=== PATIENT | male | born 1970 | race Caucasian/White ===

== ENCOUNTER 2019-01-08 09:24 | Inpatient (IN) ==
[2019-01-08] MEDS ORDERED: *HR* Heparin 10,000 UNIT/10 ML VIAL ONE (09:44)
[2019-01-08] MEDS ORDERED: 0.9 % Sodium Chloride 1,000 ML ONE ×3 (09:44→13:28)
[2019-01-08] MEDS ORDERED: Nitroglycerin 1,000 MCG/10 ML VIAL IV ONE (09:44)
[2019-01-08] MEDS ORDERED: Heparin 1,000 UNITS/500 mL 500 ML ONE (09:44)
[2019-01-08] MEDS ORDERED: ISOVUE-370 100 ML INFUS..BTL ONE ×3 (09:45→11:06)
[2019-01-08] MEDS ORDERED: Tirofiban 12.5 MG/250ML 12.5 MG/250 ML BAG ONE (09:57)
[2019-01-08] MEDS ORDERED: *HR* Midazolam HCl 2 MG/2 ML VIAL ONE (10:17)
[2019-01-08] MEDS ORDERED: *HR* FentaNYL (PF) 100 MCG/2 ML VIAL ONE (10:17)
[2019-01-08] MEDS ORDERED: *HR* Morphine 10 MG/ML VIAL ONE (10:35)
--- NOTE | 2019-01-08 11:43 | Invasive Diagnostic Lab Proc ---
Name: Louis Brunson Date of Study: 01/08/2019 Date: 1970 Ht: 66.0in Medical Record#: [id number] Age: 48 Wt: 220.46lb Gender: Male BSA: 2.08 Order #: [id number] BMI: 35.6 Physicians Procedure Physician: Camryn Elizabeth MD Referring MD: Referring MD: Staff Name Position Time In HilariamiriamIndigo engle RN Monitor 10:13 AM Ever Verma RN Office Employee 10:13 AM Sharmaine Taveras RT (R) Scrub 10:13 AM Wero Malone RN Nurse 10:13 AM Richar Branham RN Office Employee 10:13 AM Anali Rodriguez RN Nurse 10:13 AM Indications Indication STEMI Procedures Performed Procedure L HRT ARTERY/VENTRICLE ANGIO PRQ CARD REVASC [place] 1 VSL Pre-Procedure Checklist Informed consent is complete signed and on chart. H&P is on chart. ID band is on and ID verified with patient. Patient NPO for procedure The procedure was described for the patient and questions were answered. ECG is on chart. Plan of Care Patient will tolerate the procedure without complications. Adequate level of comfort will be maintained. Hemodynamics will remain stable Patient will recover from procedure without complications. Respiratory function will be maintained. Cardiac rhythm will remain stable. Patient temperature will be maintained. Patient and/or family have verbalized understanding of the procedure. Patient Education Chief Complaint/Reason for Test: Cardiac Cath Developmental Category: Adult (18-64 years) Developmentally Appropriate for Age: Yes Learning Barriers: None Education Needs: Procedure Education Method: Verbal Information Taught: Cardiac Cath Educational Evaluation: Able to repeat information Intravenous Access Time IV Size Location DC'd Fluid/Drip Rate Units RN 18g 1 1/4" Patent On Arrival Rt Antecubital 0.9NaCl ml/hr 20g 1 1/4" Patent On Arrival Lt Antecubital Allergies nkda No Known Allergies Vital Signs Time BP (mmHg) HR (bpm) O2 Sat. RR (bpm) LOC 10:14 AM / % 5 = Fully awake and oriented or at pre-proc level 10:14 AM / % 4 = Oriented but drowsy 10:29 AM / % 4 = Oriented but drowsy 10:45 AM / % 4 = Oriented but drowsy 10:19 AM 189 / 130 61 100 % 24 10:23 AM 195 / 110 78 98 % 18 10:28 AM 188 / 126 80 95 % 14 10:32 AM 174 / 133 73 94 % 12 10:38 AM 174 / 125 80 94 % 13 10:42 AM 160 / 108 69 92 % 12 10:48 AM 147 / 113 59 97 % 13 10:52 AM 149 / 96 77 95 % 12 10:57 AM 155 / 105 75 93 % 14 11:02 AM 148 / 100 69 94 % 14 11:07 AM 154 / 106 98 96 % 18 Procedural Medications Time Medication Dose Units Method Given By 10:14 AM Oxygen 2 L/min nasal cannula Ever Verma RN 10:18 AM Versed 1 mg Intravenous Ever Verma RN 10:18 AM Fentanyl 50 mcg Intravenous Ever Verma RN 10:20 AM Lidocaine 2% 10 ml Subcutaneous Camryn Elizabeth MD 10:25 AM Aggrastat Bolus: 50 ml Intravenous Ever Verma RN 10:25 AM Aggrastat 12.5mg/250ml 18 ml/hr Intravenous Ever Verma RN 10:36 AM Morphine 1 mg Intravenous Ever Verma RN 10:38 AM Heparin 2500 units Intravenous Ever Verma RN 10:50 AM Nitroglycerin 100 mcg IntracoronTimothy Dubose MD 10:51 AM Versed 0.5 mg Intravenous Ever Verma RN 10:51 AM Nitroglycerin 200 mcg Intracoronary Timothy Elizabeth MD 10:52 AM Oxygen 6 L/min nasal cannula Ever Verma RN 10:55 AM Nitroglycerin 200 mcg Intracoronary Timothy Elizabeth MD Alphonse Score Preprocedure Postprocedure Activity 2- Moves 4 extremities sustained head lift Activity 2- Moves 4 extremities sustained head lift Circulation 2- SBP +/= 20 points of pre-anesthetic level Circulation 2- SBP +/= 20 points of pre-anesthetic level Consciousness 2- Awake and alert oriented x 3 Consciousness 2- Awake and alert oriented x 3 O2 Saturation 2- Able to maintain O2 satruation of 92% on room air O2 Saturation 2- Able to maintain O2 satruation of 92% on room air Respiratory 2- Able to deep breathe and cough well Respiratory 2- Able to deep breathe and cough well Total Score 10 Total Score 10 Contrast Agent: Isovue Diagnostic Contrast: 254 ml Total Contrast: 254 ml Fluoro Dose: 279 mGy Activated Clotting Time Time Seconds to Clot 10:37 AM 182 10:53 AM 236 11:16 AM 208 Procedure Log Time Note Enter By 09:57 AM CathStat 10:13 AM Case Start 10:13 AM Pt arrived to laborer tree tapping 1 at 10:13 [email or web address] 10:13 AM Indigo Mae RN Position: Monitor Time in: 10:13 tsoummers 10:13 AM Ever Verma RN Position: Office Employee Time in: 10:13 oummers 10:13 AM Sharmaine Taveras RT (R) Position: Scrub Time in: :oummers 10:13 AM Wero Malone RN Position: Nurse Time in: :13 oummers 10:13 AM Richar Branham RN Position: Office Employee Time in: :13 oummers 10:13 AM Anali Rodriguez RN Position: Nurse Time in: :13 tsoummers 10:13 AM Patient charges- Angio tray pack, Navilyst 3mm J, Pulse Oximetry and ACIST tubing and transducer tsoummers 10:13 AM Meet and greet completed mm 10:13 AM Sign in performed according to hospital policy. Informed consent was obtained. tsoummers 10:13 AM Procedure start 10:13 oumm 10:14 AM Time: 10:14 Oxygen on at 2 L/min per nasal cannula by [facility] RN [facility]14 AM Time: 10:14 Patient comfortable and pain free: Yes tsoumm 10:14 AM Time: 10:14LOC: 5 = Fully awake and oriented or at pre-proc level tsoumm 10:15 AM Hair removed from procedure site in procedure lab using clippers. Bilateral groin prepped with Chloraprep by Sharmaine Taveras RT (R), then patient was draped. Skin intact. tsmm 10:15 AM Critical cardiac patient with acute [place] was brought emergently to the cardiac lab aide for immediate coronary angiography and intervention if clinically indicated. [facility] AM Vitals capture started with the following parameters, Patient=Adult, Interval=5 min, Initial Ecpqwclq=749 mmHg, Deflation Rate=3 mmHg, Cuff placed on Right Arm 10:18 AM Time: 10:18 Versed 1 mg Intravenous Given by Ever Verma RN 10:18 AM Time: 10:18 Fentanyl 50 mcg Intravenous Given by Ever Verma RN [facility] 10:19 AM HR=61 bpm, SLEU=972/130 mmhg, FtG0=941.0 %, Resp=24 B/min 10:19 AM Time out was performed according to hospital policy. Conscious sedation and anesthesia was achieved (see medication log with in this report above) 10:19 AM Clinical Presentation: STEMI or equivalent 10:20 AM Recorded ECG: HR=68 Condition=Condition 1 10:20 AM Pressure channel 1 zeroed. 10:21 AM Time: 10: 10 ml Lidocaine 2% to right groin Subcutaneous Given by Camryn Elizabeth MD 10:21 AM Micro-Introducer Kit utilized for sheath placement mm 10:21 AM Access obtained by percutaneous puncture. 6Fr 10cm Terumo [place] sheath placed in right Femoral artery. [id number] mm 10:21 AM 0.035 145cm Navilyst 3mmJ wire [id number] 10:22 AM 5Fr FR 4 catheter inserted over the wire [facility] 10:22 AM wire removed 10:22 AM RCA angiography performed in multiple views. tsmm 10:22 AM Recorded Pressure: Ao, HR=75, Condition=Condition 1 (Aorta) Ao 85/62/74 10:22 AM Coronary Dominance: right mm 10:22 AM Catheter removed 10:23 AM HR=78 bpm, PULD=979/110 mmhg, SpO2=98.0 %, Resp=18 B/min 10:23 AM 6Fr XB LAD 3.5 Cordis guide catheter was used to cannulate the PCI vessel successfully. reused? No tsoummers 10:24 AM LCA angiography performed in multiple views. tsoumm 10:24 AM Recorded Pressure: Ao, HR=80, Condition=Condition 1 (Aorta) Ao 187/128/153 10:24 AM Recorded ECG: HR=82 Condition=Condition 1 10:24 AM .014 [employer] [place] 190cm guide wire across target lesion- successful. reused? No oumm 10:25 AM Time: 10:25 Aggrastat Bolus: 50 ml Intravenous Given by Bayron, Ever RN Chase pump tsoummers 10:25 AM Time: 10:25 Aggrastat 12.5mg/250ml 18 ml/hr Intravenous Given by Ever Verma RN [facility] 10:26 AM Lesion found in Proximal LAD. Pre Stenosis: 100 Pre WAI Flow: 0: No Flow/No perfusion tsoummers 10:28 AM HR=80 bpm, BSKD=686/126 mmhg, SpO2=95.0 %, Resp=14 B/min 10:29 AM Time: 10:14LOC: 4 = Oriented but drowsy tsoummers 10:29 AM Time: 10:14 Patient comfortable and pain free: Yes tsoummers 10:30 AM Inflation device was opened. tsoummers 10:30 AM 2.0 mm x 12 mm Emerge Monorail balloon across target lesion- successful. reused? No tsoummers 10:30 AM Balloon inflated @ 6 gerri for 7 seconds tsoummers 10:30 AM Balloon inflated @ 6 gerri for 9 seconds tsoummers 10:31 AM Balloon inflated @ 7 gerri for 5 seconds tsoummers 10:31 AM Balloon catheter removed intact. tsoummers 10:32 AM Recorded Pressure: Ao, HR=99, Condition=Condition 1 (Aorta) Ao 160/123/141 10:32 AM Recorded ECG: SW=681 Condition=Condition 1 10:32 AM Recorded Pressure: Ao, IM=648, Condition=Condition 1 (Aorta) Ao 166/127/146 10:32 AM HR=73 bpm, LNFP=818/133 mmhg, SpO2=94.0 %, Resp=12 B/min 10:35 AM 3.5mm x 28mm Synergy drug-eluting stent across target lesion- successful Lot #[id number] tsoummers 10:36 AM Stent deployed @ 8 gerri for 8 seconds tsoummers 10:36 AM Time: 10:36 Morphine 1 mg Intravenous Given by Ever Verma RN [facility] 10:37 AM Stent balloon reinflated @ 11 gerri for 6 seconds tsoummers 10:37 AM At 10:37 the ACT was 182 seconds. tsoummers 10:37 AM Stent delivery system removed intact. tsoummers 10:38 AM Time: 10:38 Heparin 2500 units Intravenous Given by Ever Verma RN [facility] 10:38 AM HR=80 bpm, PIIP=248/125 mmhg, SpO2=94.0 %, Resp=13 B/min 10:38 AM Recorded Pressure: Ao, HR=80, Condition=Condition 1 (Aorta) Ao 162/120/139 10:40 AM Recorded ECG: HR=72 Condition=Condition 1 10:41 AM 3.0mm x 32mm Synergy drug-eluting stent across target lesion- successful Lot #[id number] tsoummers 10:42 AM HR=69 bpm, PRUX=702/108 mmhg, SpO2=92.0 %, Resp=12 B/min 10:43 AM Stent removed intact. Not deployed tsoummers 10:43 AM 3.5 mm x 20mm NC Trek Rx balloon across target lesion- successful. reused? No tsoummers 10:44 AM Balloon inflated @ 10 gerri for 12 seconds tsoummers 10:44 AM Balloon inflated @ 19 gerri for 8 seconds tsoummers 10:45 AM Time: 10:29 Patient comfortable and pain free: Yes tsoummers 10:45 AM Time: 10:29LOC: 4 = Oriented but drowsy tsoummers 10:45 AM Balloon catheter removed intact. tsoummers 10:45 AM 3.0mm x 32 mm synergy reinserted tsoummers 10:48 AM Stent deployed @ 9 gerri for 9 seconds tsoummers 10:48 AM Stent balloon reinflated @ 11 gerri for 6 seconds tsoummers 10:48 AM Stent balloon reinflated @ 11 gerri for 6 seconds tsoummers 10:48 AM HR=59 bpm, JECD=218/113 mmhg, SpO2=97.0 %, Resp=13 B/min 10:49 AM Stent balloon reinflated @ 12 gerri for 15 seconds tsoummers 10:49 AM Stent delivery system removed intact. tsoummers 10:50 AM Recorded ECG: HR=75 Condition=Condition 1 10:50 AM Recorded Pressure: Ao, HR=72, Condition=Condition 1 (Aorta) Ao 138/99/117 10:50 AM Time: 10:50 Nitroglycerin 100 mcg Intracoronary Given by Timothy Elizabeth MD 10:51 AM called Jovanny to confirm 180mg brilinta administered SENIOR CLINICAL PROJECT MANAGER [facility] 10:51 AM Time: 10:51 Versed 0.5 mg Intravenous Given by Ever Verma RN 10:51 AM Time: 10:51 Nitroglycerin 200 mcg Intracoronary Given by Timothy Elizabeth MD [facility] 10:52 AM Time: 10:52 Oxygen on at 6 L/min per nasal cannula by Ever Verma RN [facility] 10:52 AM HR=77 bpm, HHVD=575/96 mmhg, SpO2=95.0 %, Resp=12 B/min 10:53 AM At 10:53 the ACT was 236 seconds. [facility] 10:53 AM Recorded Pressure: Ao, HR=74, Condition=Condition 1 (Aorta) Ao 141/107/124 10:55 AM Time: 10:55 Nitroglycerin 200 mcg Intracoronary Given by [facility] 10[facility]56 AM Recorded ECG: HR=78 Condition=Condition 1 10:56 AM Recorded Pressure: Ao, HR=74, Condition=Condition 1 (Aorta) Ao 140/104/120 10:57 AM HR=75 bpm, YWNJ=786/105 mmhg, SpO2=93.0 %, Resp=14 B/min 11:00 AM Time: 10:45LOC: 4 = Oriented but drowsy [facility] 11:00 AM Time: 10:45 Patient comfortable and pain free: Yes [facility] 11:02 AM 1.5 mm x 15 mm Emerge Monorail balloon across target lesion- successful. reused? No [facility] 11:02 AM HR=69 bpm, XPEB=757/100 mmhg, SpO2=94.0 %, Resp=14 B/min 11:03 AM Balloon inflated @ 6 gerri for 12 seconds [facility] 11:03 AM Balloon inflated @ 7 gerri for 30 seconds [facility] 11:04 AM Balloon inflated @ 7 gerri for 7 seconds [facility] 11:04 AM Balloon inflated @ 9 gerri for 12 seconds [facility] 11:05 AM Balloon catheter removed intact. [facility] 11:05 AM Guide wire removed intact. [facility] 11:05 AM Recorded Pressure: Ao, HR=75, Condition=Condition 1 (Aorta) Ao 139/99/117 11:06 AM Guide catheter removed intact. [facility] 11:06 AM Recorded ECG: HR=90 Condition=Condition 1 11:06 AM 5Fr Pigtail catheter inserted over the wire [facility] 11:06 AM Catheter crossed the aortic valve and was selectively placed in the left ventricle. Pressures recorded on pullback for left heart catheterization. [facility] 11:07 AM Recorded Pressure: LV, HR=89, Condition=Condition 1 (Left Ventricle) LV 127/26/28 11:07 AM HR=98 bpm, IJYX=305/106 mmhg, SpO2=96.0 %, Resp=18 B/min 11:08 AM Bolus angiogram of left Ventricle complete: 10 ml/sec for a total of 20 mls [facility] 11:08 AM Catheter removed [facility] 11:08 AM Recorded Pressure: LV, Ao, HR=69, Condition=Condition 1 (Left Ventricle) LV 115/33/36, (Aorta) Ao 142/105/123 11:08 AM Pressure channel 1 zero failed. 11:09 AM Bolus angiogram of right Femoral complete: HAND INJECTION 4 MLS [facility] 11:10 AM Procedure completed at 11:10 01/08/2019 [facility] 11:11 AM Did you address WAI flow and Dominance? Yes [facility] 11:13 AM Sign out completed: Radiation Dose 2618.94 mGy, 278.97 Gy/cm2 Fluoro Time: 16.8 Isovue 370 - 200ml contrast 254 ml given by Camryn Elizabeth MD. Complications: None. The patient was discharged out of the lab aide in stable condition. Sedation minutes 55. Cardiac Rehab Consult needed: Yes. Confirmed administered medications: Yes [facility] 11:13 AM Isovue 370 - 100ml,4 Bottle(s) used. [facility] 11:14 AM Sheath left in place to be pulled on floor/holding area [facility] 11:14 AM Estimated Blood Loss: less than 50cc [facility] 11:14 AM Post ECG NSR [facility] 11:14 AM Post Blood Pressure 137/107 [facility] 11:14 AM Information taught Cardiac Cath and PCI [facility] 11:14 AM Education needs Procedure, Plan of Care, Responsibilities of Patient in Care, and Disease Process [facility] 11:14 AM Learning barriers :Sedated [facility] 11:14 AM Education Methods Verbal [facility] 11:14 AM Education evaluation Able to repeat information [facility] 11:14 AM Site status No bleeding/hematoma - Rt Groin as reported by Sharmaine Taveras RT (R) at 11:14 tsoummers 11:14 AM Opsite applied ts[facility]mmers 11:14 AM Plavix, Effient or Brilinta given Yes SENIOR CLINICAL PROJECT MANAGER tsoummers 11:14 AM Delay to floor No tsoummers 11:15 AM Family placed in consult room. tsoummers 11:16 AM At 11:16 the ACT was 208 seconds. tsoummers 11:19 AM Report given to Dank RODAS Pt taken to ICU Room #9. 11:19 tsoummers 11:19 AM Patient out of room: 11:19 tsoummers 11:25 AM Lesion found in Right PDA. Pre Stenosis: 90 Pre WAI Flow: 3: Complete and Brisk Flow/Perfusion tsoummers 11:25 AM Right Coronary, Right Posterior Descending Arteries with Right Posterolateral and Acute Marginal branches with 90 % stenosis. If graft is supplying this area, 0 % stenosis tsoummers 11:25 AM Lesion found in Mid LAD. Pre Stenosis: 80 Pre WAI Flow: tsoummers 11:25 AM Lesion found in Distal LAD. Pre Stenosis: 99 Pre WAI Flow: 3: Complete and Brisk Flow/Perfusion tsoummers 11:27 AM Lesion found in Proximal Circumflex. Pre Stenosis: 50 Pre WAI Flow: tsoummers 11:27 AM Lesion found in Distal Circumflex. Pre Stenosis: 50 Pre WAI Flow: tsoummers 11:27 AM Circumflex, Obtuse Marginal, Left Posterior Descending, and Left Posterolateral Coronary Arteries with 50 % stenosis. If graft is supplying this area, 0 % stenosis tsoummers 11:27 AM Proximal Left Anterior Descending Coronary Artery with 100% stenosis. If graft is supplying this territory, 0 % stenosis. tsoummers 11:27 AM Mid/Distal Left Anterior Descending Coronary Artery and diagonal branches with 99% stenosis. If graft is supplying this area, 0 % stenosis tsoummers Complications Complication None Hemodynamics Pressures Site Systolic/A Wave Diastolic/V Wave Mean AO 85 62 74 AO 187 128 153 AO 160 123 141 AO 166 127 146 AO 162 120 139 AO 138 99 117 AO 141 107 124 AO 140 104 120 AO 139 99 117 LV 127 26 28 LV 115 33 36 AO 142 105 123 Post Procedure Information Blood Pressure: 137/107 mmHg Rhythm: NSR Post procedural instructions were given Site Checks Time Location Status Staff Sheath In? Note 11:14 AM Rt Groin No bleeding/hematoma Sharmaine Taveras RT (R) Pulses Updated by Indigo Mae RN on 01/08/2019 11:32:47 AM electronically signed on 01/08/2019 11:33:13 AM with status of Final
--- NOTE | 2019-01-08 12:09 | Cardiology History & Physical ---
Date of Encounter: 01/08/19 Time of Encounter: 12:06 Assessment and Plan (1) ST elevation myocardial infarction (STEMI) of anterior wall Current Visit: Yes Status: Acute The assessment and plan as outlined above was discussed with the patient and/or family members who expressed understanding and agreement. All questions were answered. R/B/A d/w patient and he agrees to proceed to the cathlab emergently. Patient was met in cathlab History of Present Illness Chief complaint: Chest Pain HPI: Mr. Brunson is a 48 year old male with severe chest pain presents from [facility] with anterior STEMI. Patient with hx of HTN, crushing chest pain retrosternal unrelenting. Patient was taken to the cathlab emergently hence limited history was taken. R/B/A d/w patient and he agrees to proceed to the cathlab. Patient started on ACS meds at outside hospital. Past Med Surg Social Fam HX - Past Medical History Medical history: GERD, hyperlipidemia, hypertension, liver disease, myocardial infarction Psychiatric history: no psych history - Social History Smoking Status: Former smoker Smokeless Tobacco Status: Yes Alcohol use: occasionally Drug use: none Medications and Allergies HYDROcodone/Acet 5/325 mg [Bejou 5-325 mg] 2 tab PO Q6H PRN #14 tab 11/14/15 [Rx] Lisinopril [Zestril] 40 mg PO DAILY 11/14/15 [History] Metoprolol [Lopressor] 12.5 mg PO BID 11/14/15 [History] Omeprazole [PriLOSEC] 40 mg PO DAILY 11/14/15 [History] Rosuvastatin [Crestor] 40 mg PO HS 11/14/15 [History] Sulfamethoxazole/Trimeth DS [Bactrim DS] 1 each PO BID #14 tablet 11/14/15 [Rx] cephALEXin [Keflex] 500 mg PO TID #21 capsule 11/14/15 [Rx] Sucralfate [Carafate] 1 gm PO TIDAC #25 tablet 03/23/17 [Rx] Allergy/AdvReac Type Severity Reaction Status Date / Time No Known Allergies Allergy Verified 03/22/17 21:16 All Systems Review: The remainder of the systems were reviewed and are negative Physical Examination Vital Signs, Last 4 Hours Temp Pulse Pulse Resp BP Pulse Ox 01/08/19 12:00 80 18 158/111 95 01/08/19 11:40 76 20 147/109 94 01/08/19 11:35 76 77 20 146/106 93 01/08/19 11:30 97.7 F 77 76 20 139/105 95 General: Conversant, No Apparent Distress HEENT: Atraumatic, Normocephaly, Mucus Membranes Moist Neck: No JVD, Normal carotid pulses Cardiac: Reg Rate and Rhythm, Normal S1 and S2, No Murmur Lungs: Normal Breath Sounds, No Wheeze, Rales, Rhonchi Neuro: Alert and responsive, No focal deficits noted Abdomen: Soft, Non-Tender Skin: No rashes noted on visualized skin Musculoskeletal: No Chest Wall Tenderness Extremities: No Clubbing, No Cyanosis, No Edema, Normal Pulses
[2019-01-08] MEDS ORDERED: Tirofiban 12.5 MG/250ML 12.5 MG/250 ML BAG IVC SCH (12:15)
[2019-01-08] MEDS ORDERED: *HR* Atropine Sulfate 1 MG/10 ML SYRINGE ONE (13:28)
[2019-01-08] MEDS: *HR* Ticagrelor 90 MG TABLET PO SCH (20:10)
[2019-01-08] MEDS ORDERED: Ondansetron 4 MG/2 ML VIAL IVP PRN (21:09)
[2019-01-08] MEDS ORDERED: Perflutren Lipid Microsphere 1.3 ML in 0.9 % Sodium Chloride 8.7 ML IVP ONE (21:34)
[2019-01-08] MEDS: Lisinopril 20 MG TABLET PO SCH (21:38)
[2019-01-09 05:28] LABS: Basophils % 0.2 %; Eosinophils % 0.1 %; Immature Granulocytes % 0.2 % (0-4); Lymphocytes # 1.8 K/mcL (0.6-4.6); Lymphocytes % 16.9 %; Mean Corpuscular HGB Conc 34.9 g/dL (31.6-35.5); Mean Corpuscular Hemoglobin 31.3 pg (28.0-33.3); Mean Corpuscular Volume 89.6 fL (83.0-100.0); Mean Platelet Volume 10.1 fL (9.4-12.4); Monocytes % 9.9 %; Neutrophils # 7.6 K/mcL (1.6-8.9); Platelet Count 207 K/mcL (140-400); Red Cell Distribution Width 12.8 % (11.5-14.5); Segmented Neutrophils % 72.7 %
[2019-01-09 05:42] LABS: BUN/Creatinine Ratio 16 (6-26); Blood Urea Nitrogen 13 mg/dL (6-20); Calcium 9.3 mg/dL (8.6-10.3); Carbon Dioxide 25 mEq/L (23-29); Chloride 105 mEq/L (98-107); Glucose 127 mg/dL (70-105); Osmolality,Calculated 286 (280-300); Potassium 4.1 mEq/L (3.5-5.1); Sodium 137 mEq/L (136-145); eGFR For Non-African Americans > 60 (> 60)
[2019-01-09] MEDS ORDERED: Nitroglycerin 0.4 MG PATCH.TD24 TD SCH ×2 (07:30→22:00)
[2019-01-09] MEDS: *HR* Ticagrelor 90 MG TABLET PO SCH ×2 (08:48→21:15)
[2019-01-09] MEDS: Lisinopril 20 MG TABLET PO SCH (08:48)
[2019-01-09] MEDS ORDERED: Aspirin 81 MG TAB.CHEW PO SCH (09:00)
[2019-01-09] MEDS ORDERED: Metoprolol XL (24 HR) Succ 25 MG TAB.ER.24H PO SCH (09:15)
[2019-01-09] MEDS ORDERED: Isosorbide MONOnitrate (24 HR) 30 MG TAB.ER.24H PO SCH (09:15)
--- NOTE | 2019-01-09 09:16 | Cardiology Progress Note ---
Date of Encounter: 01/09/19 Time of Encounter: 09:15 Assessment and Plan (1) ST elevation myocardial infarction (STEMI) of anterior wall Current Visit: Yes Status: Acute Per Cardiology: [facility]: Lesion Findings/Interventions * Left Main Coronary Artery The LMCA is angiographically free of disease. * Left Anterior Descending There is a 50 mm long, 100% stenosis in the Proximal LAD. The lesion has a WAI flow of 0. An intervention was performed on the Proximal LAD with a final stenosis of 0%. There were no lesion complications. The final WAI flow was 3. There is a 80% stenosis in the Mid LAD. There is a 15 mm long, 99% stenosis in the Distal LAD. The lesion has a WAI flow of 3. An intervention was performed on the Distal LAD with a final stenosis of 25%. There were no lesion complications. The final WAI flow was 3. * Circumflex There is a 50% stenosis in the Proximal Circumflex. There is a 50% stenosis in the Distal Circumflex. * Right Coronary Artery There is a 90% stenosis in the Right PDA. The lesion has a WAI flow of 3. Per Dr. Parikh, cath films reviewed and patient received KIRT to Prox 100% LAD and KIRT to 80% mid LAD. S/p PTCA to distal LAD 99% lesion with residual stenosis 25%. Has 90% right PDA lesion. Currently chest pain-free. Echo showed EF 45- 50%. Will switch beta jordon to Toprol-XL 25 mg by mouth daily. On RADHA inhibitor, aspirin, statin, Brilinta-- assistance card provided. Plan to set down to the floor today. Possible discharge tomorrow. Discussion w patient/family: The assessment and plan as outlined above was discussed with the patient and/or family members who expressed understanding and agreement. All questions were answered. Thank you for involving us in the care of your patient. Please call with any questions. Subjective Principal diagnosis: STEMI Interval history: Patient currently chest pain-free. Reports intermittent midsternal chest discomfort throughout the night. Denies any shortness of breath or palpitations. Denies any concerns with right groin site. Objective Vital Signs, Last 4 Hours Temp Pulse Resp BP Pulse Ox 01/09/19 07:20 98.2 F 01/09/19 06:00 55 18 115/62 95 General: Conversant, No Apparent Distress HEENT: Atraumatic, Normocephaly, Mucus Membranes Moist Neck: No JVD, Normal carotid pulses Cardiac: Reg Rate and Rhythm, Normal S1 and S2, No Murmur Lungs: Normal Breath Sounds, No Wheeze, Rales, Rhonchi Neuro: Alert and responsive, No focal deficits noted Abdomen: Soft, Non-Tender Skin: No rashes noted on visualized skin, Other (Right groin site dry and intact, no hematoma, no bleeding, right PT and DP pulses 2+ palpable) Musculoskeletal: No Chest Wall Tenderness Extremities: No Clubbing, No Cyanosis, No Edema, Normal Pulses Results 01/09/19 05:14 01/09/19 05:14 Lab Results Laboratory Tests 01/09/19 01/09/19 05:14 05:14 Hgb 15.0 Hct 43.0 Creatinine 0.79 Est GFR (Non-Af Amer) > 60 ITS Impressions Echocardiogram 01/08/19 12:03 Impressions: LVEF 45-50%. Moderate segmental left ventricular systolic dysfunction. Mild concentric left ventricular hypertrophy. Mild left ventricular diastolic dysfunction. Normal right ventricular structure and function. Mild tricuspid regurgitation. Mild pulmonic regurgitation. No pulmonary hypertension. Left Ventricular Wall Motion: Rest Echo Findings The apical inferior, apical anterior, mid anterior, mid inferior septal, apical lateral and mid anterior lateral swo were hypokinetic. The apex, apical septal, mid anterior septal and basal anterior septal sow were akinetic. All other wall segments showed normal motion. Findings: Study Quality * Technically adequate exam. ECG Findings * Normal sinus rhythm. Left Ventricle * LVEF 45-50%. * Moderate segmental left ventricular systolic dysfunction. * Normal LV chamber size. * Mild concentric left ventricular hypertrophy. * Mild left ventricular diastolic dysfunction. * There is no LV thrombus. * Definity echo contrast was used. Right Ventricle * Normal right ventricular structure and function. Left Atrium * Normal left atrial size. Right Atrium * Normal right atrial size. Interatrial Septum * Interatrial septum not well evaluated. * No evidence of PFO by color Doppler. Aortic Valve * Trileaflet aortic valve. * Normal aortic valve structure. * No aortic stenosis. * No aortic regurgitation. Mitral Valve * Normal mitral valve structure and function. * No mitral stenosis. * No mitral regurgitation. Tricuspid Valve * Normal tricuspid valve structure. * No tricuspid stenosis. * Mild tricuspid regurgitation. * Estimated RVSP is 30 mmHg. * Estimated RA pressure is 3 mmHg. * No pulmonary hypertension. Pulmonic Valve * Pulmonic valve is not well visualized. * No pulmonic stenosis. * Mild pulmonic regurgitation. Aorta * Normally sized aortic root. Pericardium * The pericardium appears normal. IVC * The IVC is not dilated. * > 50% respiratory change Active Medications Aspirin (Aspirin) 81 mg PO DAILY [facility] Stop: 07/11/19 09:01 Last Admin: 01/09/19 08:48 Dose: 81 mg Atorvastatin Calcium (Lipitor) 40 mg PO HS [facility] Stop: 07/10/19 21:01 Last Admin: 01/08/19 20:11 Dose: 40 mg Isosorbide Mononitrate (Imdur) 30 mg PO DAILY [facility] Stop: 07/11/19 09:16 Lisinopril (Zestril) 40 mg PO DAILY [facility]; Protocol Stop: 07/10/19 20:46 Last Admin: 01/09/19 08:48 Dose: 40 mg Metoprolol Succinate (Toprol Xl) 25 mg PO DAILY [facility] Stop: 07/11/19 09:16 Omeprazole (Prilosec) 40 mg PO DAILY@0630 [facility]; Protocol Stop: 07/10/19 20:16 Last Admin: 01/09/19 05:27 Dose: 40 mg Ondansetron HCl (Zofran) 4 mg IVP Q6HR PRN; Protocol PRN Reason: Nausea Stop: 07/10/19 21:10 Last Admin: 01/08/19 21:38 Dose: 4 mg Ticagrelor (Brilinta) 90 mg PO BID [facility] Stop: 07/10/19 21:01 Last Admin: 01/09/19 08:48 Dose: 90 mg - Imaging and Cardiology Echo: report reviewed Cardiac cath: report reviewed
[2019-01-09] MEDS ORDERED: Ondansetron 4 MG/2 ML VIAL IVP PRN (10:51)
[2019-01-09] MEDS: Acetaminophen 325 MG TABLET PO PRN (13:00)
[2019-01-09] MEDS ORDERED: Artificial Tears SOLN 15 ML BOTTLE BOTH EYES PRN (14:37)
[2019-01-09] MEDS ORDERED: Temazepam 15 MG CAPSULE PO ONE (21:00)
[2019-01-10] MEDS: Acetaminophen 325 MG TABLET PO PRN (03:10)
[2019-01-10] MEDS: *HR* Ticagrelor 90 MG TABLET PO SCH (07:59)
[2019-01-10] MEDS ORDERED: Aspirin 81 MG TAB.CHEW PO SCH (09:00)
[2019-01-10] MEDS ORDERED: Metoprolol XL (24 HR) Succ 25 MG TAB.ER.24H PO SCH (09:00)
[2019-01-10] MEDS ORDERED: Isosorbide MONOnitrate (24 HR) 30 MG TAB.ER.24H PO SCH (09:00)
[2019-01-10] MEDS ORDERED: Lisinopril 20 MG TABLET PO SCH (09:00)
[2019-01-10 09:52] VITALS: BP 105/75
[2019-01-10] MEDS ORDERED: Isosorbide MONOnitrate (24 HR) 30 MG TAB.ER.24H PO ONE (10:30)
--- NOTE | 2019-01-10 10:48 | Discharge Summary ---
Orders not resulted at time of discharge: Pending orders 01/08/19 12:03 ECG 12 lead ECG [ECG] Routine 01/09/19 07:00 ECG 12 lead ECG [ECG] Routine Date of Encounter: 01/10/19 Time of Encounter: 10:44 - Discharge Diagnosis (1) ST elevation myocardial infarction (STEMI) of anterior wall Priority: Primary Status: Acute (2) HTN (hypertension) Priority: Secondary Status: Chronic Qualifiers: Hypertension type: essential hypertension Qualified Code(s): I10 - Essential (primary) hypertension - Hospital Course Hospital course: Mr. Brunson is a 48 year old male with history of HTN who presented with chest pain and was found to have an acute STEMI. He underwent emergent LHC and received PTCA and KIRT to the proximal and mid LAD and PTCA to the distal LAD. There was a 90% RPDA lesion remaining. EF on TTE 45-50%. He is recommended to have staged PCI to the PDA after he recovers from his [place]. There was no complication from his procedure. He was started on imdur for anti-anginal therapy. He is ambulating in the hallway with no chest pain for 24 hours. His right femoral access site is without hematoma, redness, or drainage. Reportable symptoms reviewed. Importance of DAPT with asa and brilinta uninterrupted for minimum one year reviewed with patient and he voiced understanding. Activity restrictions reviewed as stated above. He will be scheduled for f/u with Dr. Elizabeth in 1 week to discuss staged PCI. Cardiac rehab ordered. - Time Spent with Patient Total time spent providing and/or coordinating discharge services: Greater than 30 minutes (d/c summary, med rec, d/c teching.) - Discharge Medications Prescriptions: New RX: Atorvastatin [Lipitor] 40 mg PO HS #30 tablet RX: Isosorbide MONOnitrate (24 HR) [Imdur] 60 mg PO DAILY #60 tab.er.24h RX: Lisinopril [Zestril] 40 mg PO DAILY #30 tablet RX: Metoprolol XL (24 HR) Succ [Toprol Xl] 25 mg PO DAILY #60 tab.er.24h RX: Ticagrelor [Brilinta] 90 mg PO BID #60 tablet Continue RX: Aspirin Enteric Coated [Aspirin EC] 162 mg PO DAILY RX: Omeprazole [PriLOSEC] 40 g PO DAILY Discontinued RX: Lisinopril-HCTZ 20-12.5 [Prinzide 20-12.5] 1 each PO DAILY Metoprolol [Lopressor] 12.5 mg PO BID Home Medications: RX: Aspirin Enteric Coated [Aspirin EC] 162 mg PO DAILY 01/09/19 [History] RX: Omeprazole [PriLOSEC] 40 g PO DAILY 01/09/19 [History] RX: Atorvastatin [Lipitor] 40 mg PO HS #30 tablet 01/10/19 [Rx] RX: Isosorbide MONOnitrate (24 HR) [Imdur] 60 mg PO DAILY #60 tab.er.24h 01/10/19 [Rx] RX: Lisinopril [Zestril] 40 mg PO DAILY #30 tablet 01/10/19 [Rx] RX: Metoprolol XL (24 HR) Succ [Toprol Xl] 25 mg PO DAILY #60 tab.er.24h 01/10/19 [Rx] RX: Ticagrelor [Brilinta] 90 mg PO BID #60 tablet 01/10/19 [Rx] Allergies/Adverse Reactions: Allergy/AdvReac Type Severity Reaction Status Date / Time No Known Allergies Allergy Verified 01/09/19 08:51 Date of admission: 01/08/19 11:32 Primary care physician: PCP NONE Consults: 01/08/19 12:03 Consult to Cardiac Rehabilitation-Phase1 [CONS] Routine Comment: Reason for Consult: AMI Call Completed: Yes Consult to Nurse Navigator [CONS] Routine Comment: Physical Examination Vital Signs, Last 4 Hours Temp Pulse Resp BP Pulse Ox 01/10/19 09:51 98.2 F 88 18 105/75 96 01/10/19 08:11 77 01/10/19 08:10 98.8 F 01/10/19 08:00 98.8 F 77 18 113/88 95 General: Conversant, No Apparent Distress HEENT: Atraumatic, Normocephaly, Mucus Membranes Moist Neck: No JVD, Normal carotid pulses Cardiac: Reg Rate and Rhythm, Normal S1 and S2, No Murmur Lungs: Normal Breath Sounds, No Wheeze, Rales, Rhonchi Neuro: Alert and responsive, No focal deficits noted Abdomen: Soft, Non-Tender Skin: No rashes noted on visualized skin Musculoskeletal: No Chest Wall Tenderness Extremities: No Clubbing, No Cyanosis, No Edema, Normal Pulses, Other (right groin soft, no hematoma) - Patient Status Disposition: Home, Self-Care Condition: Good Overall status at discharge: patient is progressing back to baseline - Discharge Instructions Instructions: Metoprolol (By mouth), Lisinopril (By mouth), Isosorbide Mononitrate (By mouth), Atorvastatin (By mouth), Ticagrelor (By mouth), Myocardial Infarction (DC), Left Heart Catheterization (DC) Follow Up With: Isaac Kruger MD [Partnered Physician] - 01/19/19 2:00 pm Camryn Elizabeth [Partnered Physician] - (Office will call patient at home with follow up appointmnet) Additional Instructions: RISK FACTORS: STOP SMOKING: If you smoke, STOP. Smoking or tobacco use significantly increases your risk of heart disease because nicotine causes the arteries to narrow or constrict. It also causes fats to stick to the artery. Your chances of having a heart attack are greatly increased if you continue to smoke. For more information, call the education line for smoking cessation [id number] EAT A LOW FAT/CHOLESTEROL/SODIUM DIET: This diet may help reduce your chances of having a heart attack. LIFTING: Avoid lifting anything more than 10 pounds for 5-7 days Prior to straining, laughing, sneezing and/or coughing, apply manual pressure directly over insertion site. ACTIVITY: You may walk or climb stairs as tolerated You can resume sexual activity as tolerated In general, you are encouraged to engage in a minimum of 30 minutes or more of moderate intensity physical activity, such as brisk walking, daily or at least 3-4 times weekly BATHING Do not submerge the site into water (bath tub, hot tub, swimming pool) for 1 week. This can be a source for infection into the blood stream. You may shower after 24 hours SITE CARE: After 24 hours, you may remove the dressing and leave the site open to air. Keep the site clean and dry. Clean gently and pat dry. You can expect bruising and tenderness that gradually resolve within a week or two. Return to work as instructed per your physician Resume driving as instructed per physician Keep all scheduled follow up appointments Resume medications as instructed IMPORTANT: If prescribed a Platelet Aggregation Inhibitor such as, Plavix, Brilinta or Effient: Duration of therapy is minimum one year These medications are often used in combination with Aspirin in prevention of future heart attacks Never discontinue unless consult with your Hemodialysis Technician STROKE (CVA) Risk factors for a stroke are: Age, cigarette smoking, diabetes, excessive alcohol consumption, family history, high blood pressure, overweight, physical inactivity, prior stroke, heart attack, diagnosis of carotid artery stenosis or other artery disease. Warning signs: Sudden numbness or weakness of the face, arm or leg; especially on one side of the body, sudden confusion, trouble speaking or understanding, sudden trouble seeing in one or both eyes, sudden trouble walking, dizziness, loss of balance or coordination, sudden severe headache with no cause. Call 911 or go to the Emergency Room. CONGESTIVE HEART FAILURE: If you have been diagnosed with Congestive Heart Failure (CHF) and your symptoms return, make an appointment with your physician Weigh yourself daily. Notify your physician if you have a weight gain of two or more pounds in one day or five or more pounds in one week. If you experience any difficulty breathing, please call 911 BLEEDING: Although the risk of bleeding is minimal, it can happen. If you have any bleeding from the site, apply firm pressure above the puncture site for 10-15 minutes. If the bleeding does not stop, continue manual pressure and call 911 Contact your physician if: You develop a fever greater than 101 degrees Fahrenheit Your site becomes reddened or has any drainage You have an increase in pain or burning at the site or if a large knot forms at the site. If you experience chest pain, shortness of breath, dizziness, or extreme tiredness, stop the activity and rest. Please notify your physicians office if you experience any of these symptoms and they are not relieved by rest please call 911! - Diet and Activity Activity: increase activity as tolerated Diet: low fat, low cholesterol
[2019-01-11] MEDS ORDERED: Isosorbide MONOnitrate (24 HR) 60 MG TAB.ER.24H PO SCH (09:00)
== END 2019-01-10 12:13 | disposition home or self-care (01) | DRG 247 ==
LOC: ICNU 11:32 → 2NNU 01-10 09:44
PROVIDERS: ADMIT Internal Medicine Cardiovascular Disease; ATTEND Internal Medicine Cardiovascular Disease

== ENCOUNTER 2019-01-11 09:27 | Inpatient (IN) ==
[2019-01-11] MEDS ORDERED: Aspirin 81 MG TAB.CHEW PO ONE (09:45)
[2019-01-11] MEDS ORDERED: ISOVUE-370 200 ML INFUS..BTL ONE ×3 (09:54→10:38)
[2019-01-11] MEDS ORDERED: Nitroglycerin 1,000 MCG/10 ML VIAL IV ONE (09:54)
[2019-01-11] MEDS ORDERED: Heparin 1,000 UNITS/500 mL 500 ML ONE (09:54)
[2019-01-11] MEDS ORDERED: *HR* Heparin 10,000 UNIT/10 ML VIAL ONE (09:54)
[2019-01-11] MEDS ORDERED: *HR* FentaNYL (PF) 100 MCG/2 ML VIAL ONE (09:55)
[2019-01-11] MEDS ORDERED: *HR* Midazolam HCl 2 MG/2 ML VIAL ONE (09:55)
[2019-01-11] MEDS ORDERED: Verapamil 5 MG/2 ML VIAL ONE (09:55)
--- NOTE | 2019-01-11 09:55 | Emergency Department Note ---
Disposition Clinical Impression: Chest pain Qualifiers: Chest pain type: chest pain due to myocardial ischemia Ischemic chest pain type: unstable angina pectoris Qualified Code(s): I20.0 - Unstable angina STEMI (ST elevation myocardial infarction) Qualifiers: Involved coronary artery: LAD coronary artery Qualified Code(s): I21.02 - ST elevation (STEMI) myocardial infarction involving left anterior descending coronary artery Disposition: Admitted As Inpatient Condition: Serious Time of Disposition: 10:01 General Adult HPI - General Stated complaint: CP, Stents put in tuesday Time Seen by Provider: 01/11/19 09:45 Source: patient Limitations: no limitations Nursing Notes Reviewed: Yes Vital Signs Reviewed: Yes - History of Present Illness HPI Narrative: Patient presents to the ED with a chief complaint of chest pain. Patient started experiencing some mild pain last night. Worsened this morning. Left- sided. Into his neck and upper back. Patient was seen Tuesday for the same thing. He had anteroseptal elevations consistent with a STEMI. He had 2 stents placed in his LAD at that time. He was discharge yesterday pain-free, but the pain returned last night. He states he has been taking his medications including his Brelinta last night and this morning. Pain Scale: 0 - Related Data Home Medications Medication Instructions Recorded Confirmed Aspirin Enteric Coated [Aspirin EC] 162 mg PO DAILY 01/09/19 01/09/19 Omeprazole [PriLOSEC] 40 g PO DAILY 01/09/19 01/09/19 Previous Rx's Medication Instructions Recorded Atorvastatin [Lipitor] 40 mg PO HS #30 tablet 01/10/19 Isosorbide MONOnitrate (24 HR) 60 mg PO DAILY #60 tab.er.24h 01/10/19 [Imdur] Lisinopril [Zestril] 40 mg PO DAILY #30 tablet 01/10/19 Metoprolol XL (24 HR) Succ [Toprol 25 mg PO DAILY #60 tab.er.24h 01/10/19 Xl] Ticagrelor [Brilinta] 90 mg PO BID #60 tablet 01/10/19 Allergies Allergy/AdvReac Type Severity Reaction Status Date / Time No Known Allergies Allergy Verified 01/09/19 08:51 All systems ED: reviewed and negative except as stated. Constitutional: Denies: fever Cardiovascular: Reports: chest pain Respiratory: Reports: dyspnea Gastrointestinal: Denies: vomiting Past Medical History - Past Medical History Attestation: Yes The following information was validated with the patient. Source: patient Medical history: Reports: GERD, hyperlipidemia, hypertension, liver disease, myocardial infarction Psychiatric history: Reports: no psych history - Social History Smoking Status: Former smoker Smokeless Tobacco Status: Yes Alcohol use: Reports: occasionally Drug use: Reports: none Physical Exam - General Limitations: no limitations General appearance: alert - Head Head exam: atraumatic, normocephalic - Eye Eye exam: Present: normal appearance, PERRL - ENT ENT exam: normal exam, normal oropharynx - Neck Neck exam: Present: normal inspection - Chest Chest inspection: Present: normal inspection, symmetric chest wall rise - Respiratory Respiratory exam: Present: normal lung sounds bilaterally. Absent: respiratory distress, wheezes - Cardiovascular Cardiovascular exam: Present: regular rate, normal rhythm, normal heart sounds - Abdominal Exam Abdominal exam: Present: soft, Non-Tender - Neurological Exam Neurological exam: Present: alert, oriented X3 - Psychiatric Psychiatric exam: Present: normal affect - Skin Skin exam: Present: warm, dry Course - Reevaluation(s) Reevaluation #1: STEMI alert is called. Heparin and aspirin ordered. EKG has been sent to [facility]. Awaiting further guidance on whether miky should be reloaded as he has been taking his twice a day dose. Time: 09:52 - Consultations Consultation #1: Pt to [facility] [employer] with Dr Parikh. Time: 09:57 Vital Signs Temperature 98.6 F 01/11/19 09:46 Pulse Rate 120 01/11/19 09:46 Respiratory Rate 22 01/11/19 09:46 Blood Pressure 109/68 01/11/19 09:46 O2 Sat by Pulse Oximetry 98 01/11/19 09:46 Temperature 98.1 F 01/11/19 11:14 Pulse Rate 76 01/11/19 12:07 Respiratory Rate 14 01/11/19 12:07 Blood Pressure 136/81 01/11/19 12:07 O2 Sat by Pulse Oximetry 97 01/11/19 12:07 Oxygen Delivery Oxygen Delivery Room Air Medical Decision Making - Lab Data Result diagrams: 01/11/19 09:46 01/11/19 09:46 Lab Results 01/11/19 01/11/19 01/11/19 Range/Units 09:46 09:46 09:46 WBC 9.3 (4.3-11.1) K/mcL RBC 5.22 (4.19-5.50) M/mcL Hgb 16.2 (12.9-16.9) g/dL Hct 46.5 (37.5-50.1) % MCV 89.1 (83.0-100.0) fL MCH 31.0 (28.0-33.3) pg MCHC 34.8 (31.6-35.5) g/dL RDW 12.6 (11.5-14.5) % Plt Count 196 (140-400) K/mcL MPV 10.3 (9.4-12.4) fL Immature Gran % 0.2 (0-4) % Seg Neutrophils % 70.4 % Lymphocytes % 20.0 % Monocytes % 8.3 % Eosinophils % 0.8 % Basophils % 0.3 % Neutrophils # 6.6 (1.6-8.9) K/mcL Lymphocytes # 1.9 (0.6-4.6) K/mcL Monocytes # 0.8 (0.0-1.3) K/mcL Eosinophils # 0.1 (0.0-0.6) K/mcL Basophils # 0.0 (0.0-0.2) K/mcL PT 11.6 (9.4-12.1) Seconds INR 1.0 APTT 31.9 (26.0-36.0) Seconds Sodium 137 (136-145) mEq/L Potassium 4.1 (3.5-5.1) mEq/L Chloride 103 (98-107) mEq/L Carbon Dioxide 25 (23-29) mEq/L BUN 16 (6-20) mg/dL Creatinine 0.98 (0.70-1.30) mg/dL Est GFR ( Amer) > 60 (> 60) Est GFR (Non-Af Amer) > 60 (> 60) BUN/Creatinine Ratio 16 (6-26) Glucose 128 H (70-105) mg/dL Calculated Osmolality 287 (280-300) Calcium 9.8 (8.6-10.3) mg/dL Magnesium 2.0 (1.6-2.6) mg/dL Troponin I 26.21 H* (< 0.04) ng/mL Critical Care Time Critical Care Time: Yes Total Critical Care Time: 32 Attestation: Critical care performed: Time is exclusive of separately billable procedures. Time includes: direct patient care, patient reassessment, coordination of patient care, interpretation of data (laboratory data, radiology data, and respiratory data), review of patient's medical records, medical consultation and documentation of patient care. Procedures included in critical care time: Procedures excluded from critical care time:
[2019-01-11] MEDS ORDERED: 0.9 % Sodium Chloride 1,000 ML IVC SCH (10:00)
[2019-01-11 10:08] LABS: Basophils % 0.3 %; Eosinophils # 0.1 K/mcL (0.0-0.6); Eosinophils % 0.8 %; Hematocrit 46.5 % (37.5-50.1); Hemoglobin 16.2 g/dL (12.9-16.9); Immature Granulocytes % 0.2 % (0-4); Lymphocytes # 1.9 K/mcL (0.6-4.6); Mean Corpuscular HGB Conc 34.8 g/dL (31.6-35.5); Mean Corpuscular Volume 89.1 fL (83.0-100.0); Mean Platelet Volume 10.3 fL (9.4-12.4); Monocytes # 0.8 K/mcL (0.0-1.3); Monocytes % 8.3 %; Neutrophils # 6.6 K/mcL (1.6-8.9); Platelet Count 196 K/mcL (140-400); Red Blood Count 5.22 M/mcL (4.19-5.50); Red Cell Distribution Width 12.6 % (11.5-14.5); Segmented Neutrophils % 70.4 %
[2019-01-11 10:30] LABS: BUN/Creatinine Ratio 16 (6-26); Blood Urea Nitrogen 16 mg/dL (6-20); Carbon Dioxide 25 mEq/L (23-29); Chloride 103 mEq/L (98-107); Potassium 4.1 mEq/L (3.5-5.1); Sodium 137 mEq/L (136-145)
[2019-01-11 10:31] LABS: Calcium 9.8 mg/dL (8.6-10.3); Glucose 128 mg/dL (70-105); Osmolality,Calculated 287 (280-300); eGFR For Non-African Americans > 60 (> 60)
[2019-01-11 10:35] LABS: Troponin I 26.21 ng/mL (< 0.04)
[2019-01-11 10:43] LABS: Prothrombin Time 11.6 Seconds (9.4-12.1)
[2019-01-11 10:46] LABS: Activated Partial Thrombo Time 31.9 Seconds (26.0-36.0)
[2019-01-11] MEDS ORDERED: *HR* Ticagrelor 90 MG TABLET ONE (10:56)
--- NOTE | 2019-01-11 11:10 | Pre-Sedation Evaluation ---
Pre-sedation evaluation - Pre-sedation checklist Date of procedure: 01/11/[address]: [facility] Recent Vitals: Last Vital Signs Temp 98.6 F 01/11/19 09:46 Pulse 107 01/11/19 09:55 Resp 20 01/11/19 10:03 BP 117/83 01/11/19 10:03 Pulse Ox 97 01/11/19 09:55 Previous reaction to sedatives/anesthetics: Yes; explain in comment Dietary Status: unknown Airway Assessment: Patient can open mouth completely, TMJ function normal If Yes;: Enlarged neck circumference, short neck ASA Classification *see protocol: CLASS III-Severe systemic disease, [id number] to any of the above to indicate emergent Plan of Care: Pt appropriate candidate for procedure/moderate/conscious sedation, Risks/benefits of procedure/sedation discussed w/ patient/family, If not NPO; Risk of intake outweiged by necessity to perform procedure Cardiac Registry (Cardio Only) - Functional Capacity Functional Capacity: >=4 METS with symptoms - Clincal Frailty Scale Clinical Frailty Scale: Managing Well
[2019-01-11] MEDS ORDERED: Ondansetron 4 MG/2 ML VIAL IVP PRN (11:11)
--- NOTE | 2019-01-11 11:20 | Invasive Diagnostic Lab Proc ---
Name: Louis Brunson Date of Study: 01/11/2019 Date: 1970 Ht: 66.1in Medical Record#: [id number] Age: 48 Wt: 218.26lb Gender: Male BSA: 2.08 Order #: [id number] BMI: 35.08 Physicians Procedure Physician: Marco Parikh MD, [facility] Referring MD: Referring MD: Staff Name Position Time In Ever Verma RN Under Presser 10:00 AM Nicolle Peters RN Under Presser 10:00 AM Wero Malone RN Monitor 10:00 AM Gaurang Ford RT (R) Scrub 10:00 AM Indications Indication Unstable Angina Procedures Performed Procedure L HRT ARTERY/VENTRICLE ANGIO PRQ CARD KIRT STENT W/ANGIO 1 VSL Pre-Procedure Checklist Pt not NPO for procedure and MD aware. Plan of Care Patient will tolerate the procedure without complications. Adequate level of comfort will be maintained. Hemodynamics will remain stable Patient will recover from procedure without complications. Respiratory function will be maintained. Cardiac rhythm will remain stable. Patient temperature will be maintained. Patient and/or family have verbalized understanding of the procedure. Patient Education Allergies nkda No Known Allergies Vital Signs Time BP (mmHg) HR (bpm) O2 Sat. RR (bpm) LOC 10:09 AM / % 5 = Fully awake and oriented or at pre-proc level 10:09 AM / % 4 = Oriented but drowsy 10:25 AM / % 4 = Oriented but drowsy 10:08 AM 125 / 86 101 % 17 10:13 AM 133 / 77 107 95 % 19 10:19 AM 94 / 51 119 90 % 18 10:27 AM 119 / 68 103 93 % 17 10:32 AM 111 / 60 100 96 % 8 10:37 AM 119 / 63 97 95 % 12 10:42 AM 130 / 69 102 94 % 20 10:47 AM 108 / 65 88 97 % 15 10:52 AM 120 / 77 101 98 % 18 Procedural Medications Time Medication Dose Units Method Given By 10:08 AM Oxygen 2 L/min nasal cannula Ever Verma RN 10:11 AM Versed 2 mg Intravenous Ever Verma RN 10:12 AM Fentanyl 50 mcg Intravenous Ever Verma RN 10:14 AM Lidocaine 2% 0.[address] Parikh 10:16 AM Heparin 1000 units Nitroglycerin 200 mcg Verapamil 2.5 mg Intraarterial Marco Parikh MD, [facility] 10:35 AM Heparin 2000 units Intravenous Ever Verma RN 10:59 AM Brilinta 90 mg Orally Ever Verma RN ASA Classification: CLASS II- Mild systemic disease (i.e. well-controlled diabetes, hypertension, asthma, cigarette smoking) Alphonse Score Preprocedure Postprocedure Activity 2- Moves 4 extremities sustained head lift Activity 2- Moves 4 extremities sustained head lift Circulation 2- SBP +/= 20 points of pre-anesthetic level Circulation 2- SBP +/= 20 points of pre-anesthetic level Consciousness 2- Awake and alert oriented x 3 Consciousness 2- Awake and alert oriented x 3 O2 Saturation 2- Able to maintain O2 satruation of 92% on room air O2 Saturation 2- Able to maintain O2 satruation of 92% on room air Respiratory 2- Able to deep breathe and cough well Respiratory 2- Able to deep breathe and cough well Total Score 10 Total Score 10 Contrast Agent: Isovue Diagnostic Contrast: 205 ml Total Contrast: 205 ml Fluoro Dose: 58 mGy Activated Clotting Time Time Seconds to Clot 10:25 AM 214 Procedure Log Time Note Enter By 10:00 AM Ever Verma RN Position: Under Presser Time in: 10:00 cedwards 10:00 AM Nicolle Peters RN Position: Under Presser Time in: 10:00 cedwards 10:00 AM Wero Malone RN Position: Monitor Time in: 10:00 cedwards 10:00 AM Gaurang Ford RT (R) Position: Scrub Time in: 10:00 cedwards 10:00 AM Patient charges- Angio tray pack, Navilyst 3mm J, Pulse Oximetry and ACIST tubing and transducer cedwards 10:00 AM IV Supplies used: J loop Angio Cath. 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 Informed consent was obtained. cedwards 10:08 AM Procedure start 10:08 cedwards 10:08 AM AD=289 bpm, KWBO=037/86 mmhg, Resp=17 B/min, Comment=NSR 10: AM Time: 10:08 Oxygen on at 2 L/min per nasal cannula by Ever Verma RN cedwards 10: AM Time: 10: Patient comfortable and pain free: No cedwards 10: AM Time: 10:LOC: 5 = Fully awake and oriented or at pre-proc level cedwards 10:11 AM Pressure channel 1 zeroed. 10:12 AM Time: 10: Versed 2 mg Intravenous Given by Ever Verma RN cedwards 10:12 AM Time: 10:12 Fentanyl 50 mcg Intravenous Given by Ever Verma RN cedwards 10:13 AM PJ=420 bpm, WCGH=492/77 mmhg, SpO2=95.0 %, Resp=19 B/min, EtCO2=33 mmHg, Comment=NSR 10:14 AM Time out was performed according to hospital policy. Conscious sedation and anesthesia was achieved (see medication log with in this report above) cedwards 10:15 AM Time: 10:14 0.5 ml Lidocaine 2% to right radial Subcutaneous Given by Dr. Parikh cedwards 10:15 AM Access obtained by percutaneous puncture. 5/6Fr 11cm Terumo Glidesheath sheath placed in right Radial artery. [id number] cedwards 10:15 AM 0.035 260cm Navilyst 3mmJ wire [id number] cedwards 10:17 AM Time: 10:16 Patient given 1,000 units Heparin, 200 mcg Nitroglycerin, and 2.5 mg Verapamil Intraarterial by Marco Parikh MD, [facility]. This is given to reduce risk of vessel spasm and thrombosis. cedwards 10:17 AM 6Fr RBL 3.5 Convey guide catheter was used to cannulate the PCI vessel successfully. reused? No cedwards 10:18 AM LCA angiography performed in multiple views. cedwards 10:18 AM Recorded Pressure: Ao, IJ=358, Condition=Condition 1 (Aorta) Ao 79/60/66 10:19 AM KM=526 bpm, NIBP=94/51 mmhg, SpO2=90.0 %, Resp=18 B/min, EtCO2=32 mmHg, Comment=NSR 10:21 AM Guide catheter removed intact. cedwards 10:21 AM 5Fr JR 4 Convey guide catheter was used to cannulate the PCI vessel successfully. reused? No cedwards 10:22 AM RCA angiography performed in multiple views. cedwards 10:23 AM Pressure channel 1 zeroed. 10:23 AM Recorded Pressure: Ao, CY=655, Condition=Condition 1 (Aorta) Ao 104/90/97 10:25 AM Time: 10:09LOC: 4 = Oriented but drowsy cedwards 10:25 AM Time: 10:09 Patient comfortable and pain free: Yes cedwards 10:25 AM Recorded Pressure: Ao, BZ=097, Condition=Condition 1 (Aorta) Ao 101/88/94 10:25 AM Vitals capture stopped. 10:25 AM At 10:25 the ACT was 214 seconds. cedwards 10:26 AM Guide catheter removed intact. cedwards 10:26 AM Vitals capture started with the following parameters, Patient=Adult, Interval=5 min, Initial Njrfcokd=914 mmHg, Deflation Rate=3 mmHg, Cuff placed on Right Arm 10:26 AM 5Fr Pigtail catheter inserted over the wire [facility] cedwards 10:27 AM Catheter crossed the aortic valve and was selectively placed in the left ventricle. Pressures recorded on pullback for left heart catheterization. cedwards 10:27 AM Bolus angiogram of left Ventricle complete: 13 ml/sec for a total of 30 mls cedwards 10:27 AM MX=479 bpm, HCIB=785/68 mmhg, SpO2=93.0 %, Resp=17 B/min, EtCO2=28 mmHg, Comment=NSR 10:28 AM Recorded Pressure: LV, HR=97, Condition=Condition 1 (Left Ventricle) LV 120/11/23 10:30 AM Recorded Pressure: LV, Ao, DU=691, Condition=Condition 1 (Left Ventricle) LV 114/13/22, (Aorta) Ao 101/68/86 10:30 AM No chest pain currently cedwards 10:31 AM Catheter removed cedwards 10:31 AM Lesion found in Proximal LMCA. Pre Stenosis: 15 Pre WAI Flow: cedwards 10:31 AM Lesion found in Distal LAD. Pre Stenosis: 99 Pre WAI Flow: cedwards 10:32 AM DU=609 bpm, ZSET=749/60 mmhg, SpO2=96.0 %, Resp=8 B/min, Comment=NSR 10:32 AM Lesion found in Proximal Circumflex. Pre Stenosis: 30 Pre WAI Flow: cedwards 10:32 AM Lesion found in 2nd Marginal. Pre Stenosis: 40 Pre WAI Flow: cedwards 10:33 AM Lesion found in Right PDA. Pre Stenosis: 90 Pre WAI Flow: 3: Complete and Brisk Flow/Perfusion cedwards 10:35 AM 6Fr JR 4 Runway guide catheter was used to cannulate the PCI vessel successfully. reused? No cedwards 10:35 AM Time: 10:35 Heparin 2000 units Intravenous Given by Ever Verma RN Chase pump cedwards 10:36 AM .014 Naranja 190cm guide wire across target lesion- successful. reused? No cedwards 10:36 AM Recorded Pressure: Ao, HR=97, Condition=Condition 1 (Aorta) Ao 104/86/94 10:37 AM HR=97 bpm, TRMS=171/63 mmhg, SpO2=95.0 %, Resp=12 B/min, EtCO2=29 mmHg, Comment=NSR 10:37 AM Inflation device was opened. cedwards 10:37 AM 2.0 mm x 20 mm Emerge Monorail balloon across target lesion- successful. reused? No cedwards 10:38 AM Balloon inflated @ 8 gerri for 14 seconds cedwards 10:39 AM Balloon inflated @ 8 gerri for 13 seconds cedwards 10:39 AM Balloon inflated @ 8 gerri for 10 seconds cedwards 10:40 AM Time: 10:25 Patient comfortable and pain free: Yes cedwards 10:40 AM Time: 10:25LOC: 4 = Oriented but drowsy cedwards 10:40 AM Recorded Pressure: Ao, HR=96, Condition=Condition 1 (Aorta) Ao 102/91/96 10:40 AM Balloon catheter removed intact. cedwards 10:42 AM UC=815 bpm, QDUF=962/69 mmhg, SpO2=94.0 %, Resp=20 B/min, EtCO2=32 mmHg, Comment=NSR 10:42 AM 2.25mm x 28mm Xience Kailey KIRT drug-eluting stent across target lesion- successful Lot #[id number] cedwards 10:44 AM Stent deployed @ 12 gerri for 23 seconds cedwards 10:44 AM Stent delivery system removed intact. cedwards 10:46 AM 2.5 mm x 6mm NC Trek Rx balloon across target lesion- successful. reused? No cedwards 10:47 AM HR=88 bpm, TMNK=505/65 mmhg, SpO2=97.0 %, Resp=15 B/min 10:48 AM Balloon inflated @ 16 gerri for 14 seconds cedwards 10:49 AM Recorded Pressure: Ao, HR=78, Condition=Condition 1 (Aorta) Ao 108/95/103 10:49 AM Balloon catheter removed intact. cedwards 10:52 AM BX=591 bpm, GYRR=525/77 mmhg, SpO2=98 %, Resp=18 B/min 10:52 AM Procedure completed at 10:52 01/11/2019 cedwards 10:52 AM Did you address WAI flow and Dominance? Yes cedwards 10:53 AM Sign out completed: Radiation Dose 985.44 mGy, 57.74 Gy/cm2 Fluoro Time: 6.1 Isovue 370 - 200ml contrast 205 ml given by Marco Parikh MD, [facility]. Complications: None. 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 Sedation minutes 41. Cardiac Rehab Consult needed: Yes. Confirmed administered medications: Yes cedwards 10:53 AM Isovue 370 - 200ml,2 Bottle(s) used. cedwards 10:53 AM Arterial sheath pulled, Vasc Band closure device used and was Successful S/N. cedwards 10:53 AM 12 ml air in Vasc Band. cedwards 10:53 AM Estimated Blood Loss: minimal cedwards 10:53 AM Post ECG NSR cedwards 10:53 AM Post Blood Pressure 120/77 cedwards 10:53 AM Information taught Cardiac Cath, PCI, and Vasc Band cedwards 10:54 AM Education needs Procedure, Plan of Care, and Disease Process cedwards 10:54 AM Learning barriers :None cedwards 10:54 AM Education Methods Verbal cedwards 10:54 AM Education evaluation Able to repeat information cedwards 10:54 AM Family placed in consult room. cedwards 10:54 AM Complications: None cedwards 10:55 AM Plavix, Effient or Brilinta given No, brilinta taken at home cedwards 10:59 AM Time: 10:59 Brilinta 90 mg Orally Given by Ever Verma RN cedwards 11:06 AM Report given to Maya RODAS Pt taken to ICU Room #2. 11:06 cedwards 11:06 AM Patient out of room: 11:06 cedwards Complications Complication None None Hemodynamics Pressures Site Systolic/A Wave Diastolic/V Wave Mean AO 79 60 66 AO 104 90 97 AO 101 88 94 LV 120 11 23 LV 114 13 22 AO 101 68 86 AO 104 86 94 AO 102 91 96 AO 108 95 103 Post Procedure Information Blood Pressure: 120/77 mmHg Rhythm: NSR Post procedural instructions were given Updated by Wero Malone RN on 01/11/2019 11:11:44 AM electronically signed on 01/11/2019 11:12:48 AM with status of Final
--- NOTE | 2019-01-11 11:34 | Cardiology History & Physical ---
Date of Encounter: 01/11/19 Time of Encounter: 11:30 History of Present Illness Chief complaint: chest pain HPI: Mr. Brunson is a 48 year old male with CAD sp recent STEMI sp PCI proximal and mid LAD with systolic CHF presents with recurrent chest pressure this morning th at was unrelenting. EKG showed Q waves and anterior current of injury. Past Med Surg Social Fam HX - Past Medical History Medical history: GERD, hyperlipidemia, hypertension, liver disease, myocardial infarction Psychiatric history: no psych history - Social History Smoking Status: Former smoker Smokeless Tobacco Status: Yes Alcohol use: occasionally Drug use: none Medications and Allergies Aspirin Enteric Coated [Aspirin EC] 162 mg PO DAILY 01/09/19 [History] Omeprazole [PriLOSEC] 40 g PO DAILY 01/09/19 [History] Atorvastatin [Lipitor] 40 mg PO HS #30 tablet 01/10/19 [Rx] Isosorbide MONOnitrate (24 HR) [Imdur] 60 mg PO DAILY #60 tab.er.24h 01/10/19 [Rx] Lisinopril [Zestril] 40 mg PO DAILY #30 tablet 01/10/19 [Rx] Metoprolol XL (24 HR) Succ [Toprol Xl] 25 mg PO DAILY #60 tab.er.24h 01/10/19 [Rx] Ticagrelor [Brilinta] 90 mg PO BID #60 tablet 01/10/19 [Rx] Allergy/AdvReac Type Severity Reaction Status Date / Time No Known Allergies Allergy Verified 01/09/19 08:51 All Systems Review: The remainder of the systems were reviewed and are negative - Constitutional Constitutional: no chills, no fever(s) - EENT Eyes: no blurred vision, no loss of vision Nose, mouth and throat: no epistaxis, no odynophagia - Cardiovascular Cardiovascular: chest pain at rest, chest pain with exertion, diaphoresis, no leg edema - Respiratory Respiratory: no hemoptysis, no wheezing - Gastrointestinal Gastrointestinal: no hematemesis, no hematochezia - Musculoskeletal Musculoskeletal: no abnormal gait, no back pain - Integumentary Integumentary: no erythema, no unusual bruising - Neurological Neurological: no dizziness, no tingling - Psychiatric Psychiatric: no hallucinations, no panic attacks - Hematological/Lymphatic Hematologic/Lymphatic: no easy bleeding, no easy bruising Physical Examination Vital Signs, Last 4 Hours Temp Pulse Resp BP Pulse Ox 01/11/19 11:14 98.1 F 73 16 133/93 96 01/11/19 10:03 20 117/83 01/11/19 09:55 107 18 114/81 97 01/11/19 09:51 110 18 114/81 93 01/11/19 09:46 98.6 F 120 22 109/68 98 Results 01/11/19 09:46 01/11/19 09:46 Lab Results 01/11/19 01/11/19 01/11/19 09:46 09:46 09:46 WBC 9.3 Hgb 16.2 Hct 46.5 Plt Count 196 INR 1.0 APTT 31.9 Sodium 137 Potassium 4.1 Chloride 103 Carbon Dioxide 25 BUN 16 Creatinine 0.98 Glucose 128 H Calcium 9.8 Magnesium 2.0 Troponin I 26.21 H*
--- NOTE | 2019-01-11 17:45 | Electrocardiograph Report ---
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
[2019-01-11] MEDS ORDERED: Ibuprofen 400 MG TABLET PO ONE (17:46)
--- NOTE | 2019-01-11 17:46 | Electrocardiograph Report ---
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
[2019-01-11] MEDS: *HR* Ticagrelor 90 MG TABLET PO SCH (21:02)
[2019-01-12 03:22] LABS: Basophils % 0.5 %; Eosinophils # 0.1 K/mcL (0.0-0.6); Eosinophils % 2.5 %; Hematocrit 42.4 % (37.5-50.1); Hemoglobin 14.8 g/dL (12.9-16.9); Immature Granulocytes % 0.2 % (0-4); Lymphocytes # 1.1 K/mcL (0.6-4.6); Lymphocytes % 19.9 %; Mean Corpuscular HGB Conc 34.9 g/dL (31.6-35.5); Mean Corpuscular Volume 88.7 fL (83.0-100.0); Mean Platelet Volume 10.4 fL (9.4-12.4); Monocytes % 17.8 %; Neutrophils # 3.4 K/mcL (1.6-8.9); Platelet Count 190 K/mcL (140-400); Red Blood Count 4.78 M/mcL (4.19-5.50); Red Cell Distribution Width 12.6 % (11.5-14.5); Segmented Neutrophils % 59.1 %
[2019-01-12 03:27] LABS: BUN/Creatinine Ratio 18 (6-26); Blood Urea Nitrogen 15 mg/dL (6-20); Carbon Dioxide 22 mEq/L (23-29); Chloride 103 mEq/L (98-107); Potassium 3.8 mEq/L (3.5-5.1); Sodium 137 mEq/L (136-145)
[2019-01-12 03:28] LABS: Calcium 8.9 mg/dL (8.6-10.3); Glucose 120 mg/dL (70-105); Osmolality,Calculated 286 (280-300); eGFR For Non-African Americans > 60 (> 60)
[2019-01-12] MEDS: Nitroglycerin 0.4 MG TAB.SUBL SL PRN ×3 (03:49→04:02)
--- NOTE | 2019-01-12 04:41 | Event Note ---
Date of Encounter: 01/12/19 Time of Encounter: 04:16 - Cardiology Event Note Patient with recent anteroseptal NC with LHC on 01/08/19 with KIRT placed in the proximal and distal LAD,unstable angina on 01/11/19 with KIRT placed on RPDA, c/o chest pain. EKG shows anteroseptal ST elevation with q waves. Patient currently chest pain free. Obtain troponin. Discussed with retail event and sales assistant supervisor functional testing.
[2019-01-12] MEDS ORDERED: Isosorbide MONOnitrate (24 HR) 60 MG TAB.ER.24H PO SCH ×2 (09:00)
[2019-01-12] MEDS ORDERED: ASPIRIN 162 MG PO SCH (09:00)
[2019-01-12] MEDS ORDERED: Lisinopril 20 MG TABLET PO SCH (09:00)
[2019-01-12] MEDS ORDERED: Aspirin 81 MG TAB.CHEW PO SCH (09:00)
[2019-01-12] MEDS ORDERED: Metoprolol XL (24 HR) Succ 25 MG TAB.ER.24H PO SCH (09:00)
[2019-01-12] MEDS: *HR* Ticagrelor 90 MG TABLET PO SCH (10:16)
[2019-01-12 13:52] VITALS: BP 121/58
--- NOTE | 2019-01-12 13:56 | Discharge Summary ---
Orders not resulted at time of discharge: Pending orders 01/11/19 07:00 ECG 12 lead ECG [ECG] Routine 01/11/19 09:52 Lt Heart Cath [CL Cardiac Catheterization] [CL] Stat 01/12/19 06:00 ECG 12 lead ECG [ECG] AM 0600 Date of Encounter: 01/12/19 Time of Encounter: 13:54 - Discharge Diagnosis (1) Chest pain Priority: Primary Status: Acute Qualifiers: Chest pain type: chest pain due to myocardial ischemia Ischemic chest pain type: unstable angina pectoris Qualified Code(s): I20.0 - Unstable angina (2) CAD (coronary artery disease) Priority: Primary Status: Acute Comments: S/p recent STEMI Qualifiers: Coronary Disease-Associated Artery/Lesion type: [place] artery [place] vs. transplanted heart: [place] heart Associated angina: with stable angina Qualified Code(s): I25.118 - Atherosclerotic heart disease of [place] coronary artery with other forms of angina pectoris - Hospital Course Hospital course: Mr. Brunson is a 48 year old male with past medical history of HTN and anterior STEMI with PCI to the LAD 01/08/19 who presented with recurrent chest pain. EKG completed in the ED showed ST elevation concerning for recurrent HI. He was taken urgently to the the cardiac catheterization lab. LHC revealed patent LAD stents. Small jailed diagonal artery noted. Distal LAD with 99% stenosis. The PDA with 90% stenosis received PTCA and KIRT. PDA disease was seen on last LHCand was to be adressed with staged procedure in out-pt setting. Patient diagnosed with unstable angina and not recurrent HI. Last night he had recurrent left upper chest wall pain releived with SL NTG. Imdur increased. He ambulated multiple times in the hallways today and is chest pain free. Cardiac rehab was o rdered at last visit and he will consider out-pt. There was no complication from his procedure. His right radial access site is without hematoma, redness, or drainage. Reportable symptoms reviewed. Importance of DAPT with asa and plavix uninterrupted for minimum one year reviewed with patient and he voiced understanding. Activity restrictions reviewed as stated above. He did note bloody nasal drainage. This has resolved. - Time Spent with Patient Total time spent providing and/or coordinating discharge services: Greater than 30 minutes - Discharge Medications Prescriptions: New Nitroglycerin 0.4 mg SL Q5MIN PRN #25 tab.subl PRN Reason: Chest Pain Continue Aspirin Enteric Coated [Aspirin EC] 162 mg PO DAILY Omeprazole [PriLOSEC] 40 mg PO DAILY Atorvastatin [Lipitor] 40 mg PO HS #30 tablet Lisinopril [Zestril] 40 mg PO DAILY #30 tablet Metoprolol XL (24 HR) Succ [Toprol Xl] 25 mg PO DAILY #60 tab.er.24h Ticagrelor [Brilinta] 90 mg PO BID #60 tablet Changed Isosorbide MONOnitrate (24 HR) [Imdur] 90 mg PO DAILY #60 tab.er.24h Home Medications: Aspirin Enteric Coated [Aspirin EC] 162 mg PO DAILY 01/09/19 [History] Omeprazole [PriLOSEC] 40 mg PO DAILY 01/09/19 [History] Atorvastatin [Lipitor] 40 mg PO HS #30 tablet 01/10/19 [Rx] Lisinopril [Zestril] 40 mg PO DAILY #30 tablet 01/10/19 [Rx] Metoprolol XL (24 HR) Succ [Toprol Xl] 25 mg PO DAILY #60 tab.er.24h 01/10/19 [Rx] Ticagrelor [Brilinta] 90 mg PO BID #60 tablet 01/10/19 [Rx] Isosorbide MONOnitrate (24 HR) [Imdur] 90 mg PO DAILY #60 tab.er.24h 01/12/19 [Rx] Nitroglycerin 0.4 mg SL Q5MIN PRN #25 tab.subl 01/12/19 [Rx] Allergies/Adverse Reactions: Allergy/AdvReac Type Severity Reaction Status Date / Time No Known Allergies Allergy Verified 01/12/19 08:50 Date of admission: 01/11/19 10:05 Primary care physician: Isaac Kruger MD Consults: 01/11/19 11:11 Consult to Cardiac Rehabilitation-Phase1 [CONS] Routine Comment: Reason for Consult: AMI Call Completed: Yes Consult to Nurse Navigator [CONS] Routine Comment: 01/11/19 11:14 Consult to Cardiac Rehabilitation-Phase1 [CONS] Routine Comment: Reason for Consult: post op PCI Call Completed: Yes Discharging clinician: Frederick Zaldivar Anticipated date of discharge: 01/12/19 Physical Examination Vital Signs, Last 4 Hours Pulse Resp BP 01/12/19 13:51 97 20 121/58 General: Conversant, No Apparent Distress HEENT: Atraumatic, Normocephaly, Mucus Membranes Moist Neck: No JVD, Normal carotid pulses Cardiac: Reg Rate and Rhythm, Normal S1 and S2, No Murmur Lungs: Normal Breath Sounds, No Wheeze, Rales, Rhonchi Neuro: Alert and responsive, No focal deficits noted Abdomen: Soft, Non-Tender Skin: No rashes noted on visualized skin Musculoskeletal: No Chest Wall Tenderness Extremities: No Clubbing, No Cyanosis, No Edema, Normal Pulses - Patient Status Disposition: Home, Self-Care Condition: Serious Functional capacity at discharge: independent ambulation Overall status at discharge: patient is progressing back to baseline - Discharge Instructions Follow Up With: Isaac Kruger MD [Primary Care Provider] - 01/19/19 9:45 am Forms: ED Satisfaction Letter Additional Instructions: RISK FACTORS: STOP SMOKING: If you smoke, STOP. Smoking or tobacco use significantly increases your risk of heart disease because nicotine causes the arteries to narrow or constrict. It also causes fats to stick to the artery. Your chances of having a heart attack are greatly increased if you continue to smoke. For more information, call the education line for smoking cessation 0-323-BETGMSQ EAT A LOW FAT/CHOLESTEROL/SODIUM DIET: This diet may help reduce your chances of having a heart attack. LIFTING: With affected extremity: Avoid bending, pushing off and lifting more than 2 pounds for 24 hours The following 48 hours, avoid lifting anything more than 5 pounds Avoid strenuous activity or repetitive motions ACTIVITY: You may walk or climb stairs as tolerated You can resume sexual activity as tolerated In general, you are encouraged to engage in a minimum of 30 minutes or more of moderate intensity physical activity, such as brisk walking, daily or at least 3-4 times weekly BATHING Do not submerge the site into water (bath tub, hot tub, swimming pool, dishes) for 1 week. This can be a source for infection into the blood stream. You may shower after 24 hours SITE CARE: After 24 hours, you may remove the dressing and leave the site open to air. Keep the site clean and dry. Clean gently and pat dry. You can expect bruising and tenderness that gradually resolve within a week or two. Return to work as instructed per your physician Resume driving as instructed per physician Keep all scheduled follow up appointments Resume medications as instructed IMPORTANT: If prescribed a Platelet Aggregation Inhibitor such as, Plavix, Brilinta or Effient: Duration of therapy is minimum one year These medications are often used in combination with Aspirin in prevention of future heart attacks Never discontinue unless consult with your Extrusion Die Repairer STROKE (CVA) Risk factors for a stroke are: Age, cigarette smoking, diabetes, excessive alcohol consumption, family history, high blood pressure, overweight, physical inactivity, prior stroke, heart attack, diagnosis of carotid artery stenosis or other artery disease. Warning signs: Sudden numbness or weakness of the face, arm or leg; especially on one side of the body, sudden confusion, trouble speaking or understanding, sudden trouble seeing in one or both eyes, sudden trouble walking, dizziness, loss of balance or coordination, sudden severe headache with no cause. Call 911 or go to the Emergency Room. CONGESTIVE HEART FAILURE: If you have been diagnosed with Congestive Heart Failure (CHF) and your symptoms return, make an appointment with your physician Weigh yourself daily. Notify your physician if you have a weight gain of two or more pounds in one day or five or more pounds in one week. If you experience any difficulty breathing, please call 911 BLEEDING: Although the risk of bleeding is minimal, it can happen. If you have any bleeding from the site, apply firm pressure above the puncture site for 10-15 minutes. If the bleeding does not stop, continue manual pressure and call 911 Contact [facility] ( ) if: You develop a fever greater than 101 degrees Fahrenheit Your site becomes reddened or has any drainage You have an increase in pain or burning at the site or if a large knot forms at the site. If you experience chest pain, shortness of breath, dizziness, or extreme tiredness, stop the activity and rest. Please notify [facility] office if you experience any of these symptoms and they are not relieved by rest please call 911! - Diet and Activity Activity: increase activity as tolerated Diet: low fat, low cholesterol
--- NOTE | 2019-01-14 09:32 | Electrocardiograph Report ---
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
== END 2019-01-12 15:30 | disposition home or self-care (01) | DRG 246 ==
LOC: EMEROOARM 09:27 → ICNU 10:05 → 2NENU 17:32
PROVIDERS: ADMIT Emergency Medicine; ATTEND Emergency Medicine